=== PATIENT | female | born 1970 | race African-American/Black ===

== ENCOUNTER 2016-03-24 03:38 | Emergency (ER) | payer BC, OTHER ==
[2016-03-24 04:33] VITALS: BP 113/58; PULSE 77; TEMP 97.7; BMI 29.9
[2016-03-24] MEDS ORDERED: KETOROLAC TROMETHAMINE 10 MG TAB PO ONE (04:41)
--- NOTE | 2016-03-24 04:42 | EDPRACDOC ---
- General Information Chief Complaint: Wrist Pain Stated Complaint: RT WRIST/HAND PAIN Time Seen by Provider: 03/24/16 04:39 Information Source: Patient Home Medications: Home Medications Ciprofloxacin HCl [Cipro] 500 mg PO BID #14 tab 10/22/15 Hydrocodone Bit/Acetaminophen [Lortab 5/325] 1 tab PO Q4-6H PRN #15 tab Ondansetron HCl [Zofran] 4 mg PO Q8H PRN #15 tab 10/22/15 Ketorolac Tromethamine 10 mg PO Q6H PRN #20 tab 03/24/16 Allergies/Adverse Reactions: Allergies Allergy/AdvReac Type Severity Reaction Status Date / Time No Known Allergies Allergy Verified 03/24/16 04:33 - History of Present Illness Onset: 4-days Location: Reports: Dorsal Mechanism: Reports: No Injury/Trauma Tetanus Up To Date?: Yes Pain Severity: Reports: Mild Associated Signs and Symptoms: Reports: None ED Past Medical History - History Reviewed Yes Nurses notes reviewed and agree except as marked - Patient Medical History GI/ History: Reports: IBD. Denies: Urinary Tract Infection Psychological History: Denies: Depression Surgical History: Reports: Other (BTL, HERNIA). Denies: Hysterectomy - Social Medical History Smoking Status: Never smoker EDM Review of Systems - Review of Systems ROS Negative Except as Marked: Yes All systems reviewed and were negative except as marked - Physical Exam Constitutional: No apparent distress Oriented to: Time, Person, Place Last recorded Vital Signs: Last Vital Signs Temp 97.7 F 03/24/16 04:05 Pulse 77 03/24/16 04:05 Resp 18 03/24/16 04:05 BP 113/58 L 03/24/16 04:05 Pulse Ox 97 03/24/16 04:05 Oxygen Pulse Oxygen Saturation 97 O2 Device Oxygen Flow Rate Fraction of Inspired Oxygen ( FIO2) ED Wrist Problem Exam Wrist Symptoms: Swelling. negative: Limited ROM Hand Symptoms: negative: Normal Forearm Symptoms: negative: Normal Distal Function/Circulation: negative: Normal - Integumentary Skin: Other (CYST) Laceration Through To: Skin Decision Time to Discharge: 04:41 - Departure Yes I personally saw and evaluated the patient. Disposition: Home Condition: Good Final Diagnosis: CYST ON WRIST Instructions: Ganglion Cysts (ED) Education/Counseling Given To: Patient Education/Counseling Given Regarding: Diagnosis, Treatment, Prognosis Referrals: Cordelia Edmondson MD [Primary Care Provider] - One Week Prescriptions: New Ketorolac Tromethamine 10 mg PO Q6H PRN #20 tab PRN Reason: Pain No Action Ciprofloxacin HCl [Cipro] 500 mg PO BID #14 tab Hydrocodone Bit/Acetaminophen [Lortab 5/325] 1 tab PO Q4-6H PRN #15 tab PRN Reason: Pain Ondansetron HCl [Zofran] 4 mg PO Q8H PRN #15 tab PRN Reason: Nausea/Vomiting
== END 2016-03-24 04:55 | disposition home or self-care (01) ==
LOC: ED 03:38
DX: L72.8 Other follicular cysts of the skin and subcutaneous tissue (principal)
CPT/HCPCS: 99282; J3490